=== PATIENT | male | born 1945 | race Caucasian/White ===

== ENCOUNTER 2017-10-07 16:15 | Emergency (ER) | payer MEDICARE ==
[2017-10-07] MEDS ORDERED: TETANUS/DIPHTHERIA TOXOID [ADULT] 0.5 ML VIAL IM ONE (16:31)
[2017-10-07] MEDS ORDERED: LIDOCAINE HCL 1% 20 ML VIAL ONE (16:31)
== END 2017-10-07 17:45 | disposition home or self-care (01) ==
LOC: EDH 16:15
DX: S61.210A Laceration without foreign body of right index finger without damage to nail, initial encounter (principal); J20.9 Acute bronchitis, unspecified; I10 Essential (primary) hypertension; I25.10 Atherosclerotic heart disease of native coronary artery without angina pectoris; Z90.49 Acquired absence of other specified parts of digestive tract; X58.XXXA Exposure to other specified factors, initial encounter; Y93.89 Activity, other specified; Y92.098 Other place in other non-institutional residence as the place of occurrence of the external cause; Y99.8 Other external cause status
CPT/HCPCS: 12042; 71046; 73140; 87804; 90471; 90714

== ENCOUNTER → 2018-05-26 | Outpatient (CLI) | payer MEDICARE ==
[~2018-05-26] MED LIST: IOHEXOL-350 50ML VIAL IV ONE
== END | disposition home or self-care (01) ==
LOC: RAH 08:53
PROVIDERS: ATTEND Internal Medicine Nephrology
DX: N28.1 Cyst of kidney, acquired (principal)
CPT/HCPCS: 74178; Q9967

== ENCOUNTER → 2023-07-11 | Outpatient (CLI) | payer MEDICARE ==
[2023-07-11 11:38] LABS: CREATININE 1.1 mg/dL (0.5-1.5)
== END | disposition home or self-care (01) ==
LOC: LAB 10:14
PROVIDERS: ATTEND Internal Medicine Cardiovascular Disease
DX: I71.20 Thoracic aortic aneurysm, without rupture, unspecified (principal)
CPT/HCPCS: 36415; 82565; 84520

== ENCOUNTER → 2023-07-15 | Outpatient (CLI) | payer MEDICARE ==
[~2023-07-15] MED LIST changes: +IOHEXOL 350 MG/ML 100ML INFUS..BTL IV ONE; -IOHEXOL-350 50ML VIAL IV ONE
== END | disposition home or self-care (01) ==
LOC: RAH 08:49
PROVIDERS: ATTEND Internal Medicine Cardiovascular Disease
DX: I71.20 Thoracic aortic aneurysm, without rupture, unspecified (principal); I51.7 Cardiomegaly; M47.819 Spondylosis without myelopathy or radiculopathy, site unspecified
CPT/HCPCS: 71275; Q9967

== ENCOUNTER → 2024-11-02 | Outpatient (CLI) | payer MEDICARE ==
[2024-11-02 11:36] LABS: CREATININE 1.2 mg/dL (0.5-1.3)
== END | disposition home or self-care (01) ==
LOC: LAB 09:47
PROVIDERS: ATTEND Internal Medicine Cardiovascular Disease
DX: I71.20 Thoracic aortic aneurysm, without rupture, unspecified (principal)
CPT/HCPCS: 36415; 82565; 84520

== ENCOUNTER → 2024-11-08 | Outpatient (CLI) | payer MEDICARE ==
--- NOTE | 2024-11-08 10:35 | HMCIMG ---
CT angiogram chest CLINICAL INDICATION: thoracic aneurysm COMPARISON: None. CT Dose Index (CTDI): 113.50 mGy Dose Length Product (DLP): 1408.10 total mGy PROTOCOL: Contrast: 100 cc of Isovue-370, injected IV, no complications Examination is done at 2.5 millimeter volumetric acquisition after contrast administration. Photography is done at 5 millimeter thick intervals for the thorax. FINDINGS: There is no evidence of pulmonary embolism. The airway is intact. The trachea and major bronchi are unremarkable. No pulmonary infiltrates or mass lesions are seen. Interstitial subpleural fibrotic changes of the lungs are seen bilaterally. No pleural effusions are identified. The exam of the tania and mediastinum is unremarkable. No evidence of hilar enlargement is seen. The aorta shows no aneurysmal dilatation or significant atheromatous calcification. There is no thoracic aortic dissection. No aorta rupture seen. No significant brachiocephalic vascular abnormalities are seen. The heart is unremarkable. It is not enlarged. No significant coronary arterial calcifications are seen. There is no pericardial effusion. The rib cage appears unremarkable. The soft tissues of the chest wall are unremarkable. The dorsal spine shows no significant abnormalities. Upper abdomen shows an anterior left renal exophytic simple cysts. IMPRESSION: No evidence of pulmonary embolism. Chronic pulmonary changes. Normal aorta. No dissection. No rupture. No aneurysm. This study was performed using dose reduction techniques to include automated exposure control and/or adjustment of the mA and/or kV according to patient size.
== END | disposition home or self-care (01) ==
LOC: RAH 09:03
PROVIDERS: ATTEND Internal Medicine Cardiovascular Disease
DX: J84.10 Pulmonary fibrosis, unspecified (principal); N28.1 Cyst of kidney, acquired; I71.20 Thoracic aortic aneurysm, without rupture, unspecified
CPT/HCPCS: 71275; Q9967; 36415; 82565; 84520

== ENCOUNTER 2025-06-08 05:50 | Observation (INO) | payer MEDICARE ==
[2025-06-06 13:01] VITALS: BP 131/77; PULSE 74; RESP 13; TEMP 98.1
[2025-06-06 13:05] LABS: INR 1.04 (0.85-1.15)
--- NOTE | 2025-06-06 13:20 | NUR ---
RE: IS INITIAL IS INITIAL TEACHING DONE BY RT JULY DURING PREOP.
[2025-06-08] VITALS (23 sets, daily range): BP systolic 87–153; BP diastolic 40–92; PULSE 70–100; RESP 16–19; TEMP 96.8–98.4; O2SAT 97–99
[~2025-06-08] VITALS: Ht 177.8 cm; Wt 100.8 kg
[~2025-06-08 05:50] MED LIST changes: +ATOR10 PO; +BRIM5DRO21 OU; +CARV25TA PO; +HYDR25TA PO; -IOHEXOL 350 MG/ML 100ML INFUS..BTL IV ONE; +LISI40TA15 PO; +PREG25CA19 PO; +TIMO5SOL10 OU
[2025-06-08] MEDS: LACTATED RINGERS 1000ML 1,000 ML IV ONE (06:11)
[2025-06-08] MEDS ORDERED: MIDAZOLAM HCL 1 MG/ML 2ML VIAL ONE (06:41)
[2025-06-08] MEDS ORDERED: LIDOCAINE HCL/EPINEPHRINE 30 ML VIAL IJ ONE (07:00)
[2025-06-08] MEDS ORDERED: GLYCOPYRROLATE 0.2 MG/ML 5 ML VIAL ONE (08:33)
[2025-06-08] MEDS ORDERED: TRANEXAMIC ACID 1000MG/10ML ONE (09:58)
[2025-06-08] MEDS: TRANEXAMIC ACID 1000MG/10ML IV ONE (09:59)
[2025-06-08] MEDS ORDERED: NEOSTIGMINE METHYLSULFATE 1MG/ML IV ONE (10:48)
[2025-06-08] MEDS ORDERED: CYCLOBENZAPRINE HCL 10 MG TABLET PO PRN (11:00)
[2025-06-08] MEDS ORDERED: FE FUMARATE/FA/MV, MIN COMB#15 1 TAB PO PRN (11:00)
[2025-06-08] MEDS ORDERED: PoTASSium chl 10% ELIXIR 20MEQ 20 MEQ/15 ML UDCUP PO PRN (11:00)
[2025-06-08] MEDS ORDERED: PROMETHAZINE HCL 25 MG/ML 1ML AMPULE IM PRN (11:30)
--- NOTE | 2025-06-08 11:50 | NUR ---
REPORT REPORT GIVEN FROM MAINOR FROM PACU 80 YR MALE STATUS POST RT TOTAL SHOULDER ARTHOPLASTY WITH DR. CURTIS PATIENT VITALS WERE BP 107/53, 16 RPM, 73 BPM, O2 96% ON 3L NASAL CANULA PATIENT WAS UNDER GENERAL ANETHESIA AND HAD A BLOCK PATIENT HAS HX OF BILATERAL CAROTID BIFURCATION AND NEEDS TO HAVE BP OVER 100 SYSTOLIC, GOT A DOSE OF EPHEDRINE IN PACU FIRST DOSE OF SCHEDULED TORADOL ALSO GIVEN IN PACU PATIENT IS ALERT AND ORIENTED X3 DERMABOND WITH PRINEO DRESSING IS IN PLACE AND RIGHT ARM IS IN A SLING DUE FOR NEXT DOSE OF ANCEF AT 1600 HOME MEDS ENTERED, ON CLEAR LIQUID AND ADVANCE TO REGULAR
--- NOTE | 2025-06-08 12:13 | HMCIMG ---
Intraoperative images obtained demonstrating reverse shoulder arthroplasty, right side. /[place]
--- NOTE | 2025-06-08 12:15 | NUR ---
UNIT ARRIVAL RECEIVED PATIENT FROM MAINOR PACU NURSE. PATIENT AWAKE, ALERT AND ORIENTED. PATIENT REPORTS NO PAIN AT THIS TIME. NO SIGNS OF DISTRESS NOTED. INCISION TO RIGHT SHOULDER CLEAN DRY AND INTACT. POST OP VITALS INITIATED. ASSESSED NEURO CHECKS. PT AND RT NOTIFIED. PHYSICIAN ORDERS IN PLACE. BED LOCKED IN LOWEST POSITION, CALL LIGHT WITHIN REACH. AT BEDSIDE.
--- NOTE | 2025-06-08 13:14 | HMCIMG ---
EXAM: CR right Shoulder, 1 View. CLINICAL HISTORY: RT reverse total shoulder arthroplasty COMPARISON: None provided. FINDINGS: BONES: No acute fracture or aggressive appearing osseous lesion. JOINTS: No dislocation. The joint spaces are normal. SOFT TISSUES: Postoperative single AP film demonstrates a right total shoulder arthroplasty, with postsurgical changes noted within the soft tissues. IMPRESSION: Postoperative single AP film demonstrates a right total shoulder arthroplasty, with postsurgical changes noted within the soft tissues. /[place]
[2025-06-08] MEDS: 0.9%NACL 1000ML 1,000 ML IV SCH (15:00)
[2025-06-08] MEDS: TIMOLOL OU SCH (21:00)
[2025-06-08] MEDS: BRIMONIDINE TARTRATE OU SCH (21:00)
[2025-06-08] MEDS: TIMOLOL MALEATE 0.5% 5 ML BOTTLE OU SCH (21:46)
[2025-06-08] MEDS ORDERED: HYDR-4060 PO (22:44)
[2025-06-08] MEDS ORDERED: DOCU-116 PO (22:44)
[2025-06-08] MEDS ORDERED: CYCL-309 PO (22:44)
[2025-06-09 03:58] LABS: NUCLEATED RED BLOOD CELLS 0.0 % (0.0-0.19); PLATELET COUNT (AUTO) 204.0 K/uL (130-400); RED BLOOD CELL COUNT(AUTO) 4.04 MIL/uL (4.50-6.20); RED CELL DISTRIBUTION WIDTH 12.4 % (11.0-15.5); WHITE BLOOD COUNT (AUTO) 12.8 K/uL (4.8-10.8)
[2025-06-09 04:10] LABS: CREATININE 1.1 mg/dL (0.5-1.3); GLOMERULAR FILTR. RATE CALC 67.0 mL/min (>90); GLUCOSE,RANDOM 138.0 mg/dL (70-105); SODIUM SERUM 133.0 mmol/L (136-145); UREA NITROGEN, BLOOD 19.0 mg/dL (7-18)
[2025-06-09 04:22] VITALS: BP 134/81; PULSE 94; RESP 18; TEMP 98.4
[2025-06-09] MEDS: PoTASSium chloRIDE 20MEQ ER 20 MEQ ERTAB PO PRN (06:08)
[2025-06-09 08:06] VITALS: BP 121/77; PULSE 93; RESP 16; TEMP 100
--- NOTE | 2025-06-09 08:06 | PN ---
Ortho postop day one. This morning patient is awake alert and oriented. Reporting adequate pain control. He is out of bed seated in a chair enjoying his breakfast. He did state that he had a GI upset last night but it is improved. Vital signs have remained stable he is afebrile. Laboratory results reviewed noted to have a drop in hemoglobin and hematocrit as expected after reverse shoulder arthroplasty. Patient is currently asymptomatic we will continue to observe and treat per protocol as necessary. The dressing to the anterior deltopectoral region is intact. Distal neurovascular exam intact. Able to give okay sign and full range of motion of the wrist actively. Reinforced incentive spirometry. Voiding on his own yet to pass gas. SCD sleeves present. Pending therapy this morning. Anticipated discharge goal is home health/OT. Assessment: Status post right reverse shoulder arthroplasty. Acute postoperative blood loss anemia. Plan: Continue with Dr. Thompson reverse shoulder arthroplasty and discharge planning. Acute postoperative blood loss anemia addressed with the protocol as necessary Vitals/Labs Vital Signs Date Time Temp Pulse Resp B/P (MAP) Pulse Ox O2 Delivery O2 Flow Rate FiO2 06/09/25 04:22 98.4 94 18 134/81 96 Room Air 21 06/08/25 20:00 0 Laboratory Tests 06/09/25 03:39 Medications Current Medications Cefazolin Sodium 2 gm STK-MED ONCE .ROUTE; Start 06/08/25 at 06:11; Stop 06/08/25 at 06:11; Status DC Lactated Ringer's 1,000 ml @ As Directed STK-MED ONCE IV; Start 06/08/25 at 06:11; Stop 06/08/25 at 06:11; Status DC Propofol 200 mg STK-MED ONCE IV; Start 06/08/25 at 06:40; Stop 06/08/25 at 06:40; Status DC Midazolam HCl 2 mg STK-MED ONCE .ROUTE; Start 06/08/25 at 06:41; Stop 06/08/25 at 06:40; Status DC Fentanyl Citrate 100 mcg STK-MED ONCE .ROUTE; Start 06/08/25 at 06:41; Stop 06/08/25 at 06:41; Status DC Rocuronium [place] 50 mg STK-MED ONCE .ROUTE; Start 06/08/25 at 06:58; Stop 06/08/25 at 06:58; Status DC Ropivacaine 150 mg STK-MED ONCE .ROUTE; Start 06/08/25 at 06:59; Stop 06/08/25 at 06:59; Status DC Lidocaine/ Epinephrine 30 ml STK-MED ONCE IJ; Start 06/08/25 at 07:00; Stop 06/08/25 at 07:00; Status DC Phenylephrine HCl 10 mg STK-MED ONCE IV; Start 06/08/25 at 07:01; Stop 06/08/25 at 07:01; Status DC Ondansetron HCl 4 mg STK-MED ONCE .ROUTE; Start 06/08/25 at 07:10; Stop 06/08/25 at 07:10; Status DC Acetaminophen 100 ml @ As Directed STK-MED ONCE .ROUTE; Start 06/08/25 at 07:15; Stop 06/08/25 at 07:15; Status DC Fentanyl Citrate 100 mcg STK-MED ONCE .ROUTE; Start 06/08/25 at 07:17; Stop 06/08/25 at 07:17; Status DC Rocuronium [place] 50 mg STK-MED ONCE .ROUTE; Start 06/08/25 at 08:22; Stop 06/08/25 at 08:22; Status DC Glycopyrrolate 1 mg STK-MED ONCE .ROUTE; Start 06/08/25 at 08:33; Stop 06/08/25 at 08:33; Status DC Ephedrine Sulfate 50 mg STK-MED ONCE .ROUTE; Start 06/08/25 at 08:40; Stop 06/08/25 at 08:40; Status DC Ondansetron HCl 4 mg STK-MED ONCE .ROUTE; Start 06/08/25 at 08:53; Stop 06/08/25 at 08:53; Status DC Metoclopramide HCl 10 mg STK-MED ONCE .ROUTE; Start 06/08/25 at 08:54; Stop 06/08/25 at 08:54; Status DC Tranexamic Acid 1,000 mg STK-MED ONCE .ROUTE; Start 06/08/25 at 09:58; Stop 06/08/25 at 09:58; Status DC Phenylephrine HCl 10 mg STK-MED ONCE IV; Start 06/08/25 at 10:39; Stop 06/08/25 at 10:39; Status DC Cefazolin Sodium 2 gm STK-MED ONCE IVPB Last administered on 06/08/25at 08:00; Start 06/08/25 at 08:00; Stop 06/08/25 at 10:48; Status DC Tranexamic Acid 1,000 mg STK-MED ONCE IV Last administered on 06/08/25at 09:59; Start 06/08/25 at 09:59; Stop 06/08/25 at 10:48; Status DC Neostigmine Methylsulfate 10 mg STK-MED ONCE IV; Start 06/08/25 at 10:48; Stop 06/08/25 at 10:49; Status DC Fentanyl Citrate 100 mcg STK-MED ONCE .ROUTE; Start 06/08/25 at 10:52; Stop 06/08/25 at 10:53; Status DC Sodium Chloride 1,000 ml @ 100 mls/hr Q10H IV Last administered on 06/08/25at 22:00; Start 06/08/25 at 11:00; Stop 06/09/25 at 10:59 Polyethylene Glycol 17 gm DAILY PO; Start 06/09/25 at 09:00; Stop 07/09/25 at 08:59 Bisacodyl 10 mg DAILY PRN RC; Start 06/11/25 at 11:00; Stop 07/11/25 at 10:59 Aspirin 325 mg BID PO; Start 06/09/25 at 09:00; Stop 07/09/25 at 08:59 Ketorolac Tromethamine 15 mg Q6H PRN IV; Start 06/08/25 at 11:00; Stop 06/13/25 at 10:59 Multivitamins/Iron 1 tab DAILY PRN PO; Start 06/08/25 at 11:00; Stop 07/08/25 at 10:59 Ondansetron HCl 4 mg Q6H PRN IVP Last administered on 06/08/25at 21:40; Start 06/08/25 at 11:00; Stop 07/08/25 at 10:59 Calcium Carbonate 500 mg Q12H PRN PO; Start 06/08/25 at 11:00; Stop 07/08/25 at 10:59 Cefazolin Sodium 2 gm Q8H IVPB Last administered on 06/09/25at 00:15; Start 06/08/25 at 16:00; Stop 06/09/25 at 00:01; Status DC Gabapentin 100 mg TID PO Last administered on 06/08/25at 21:26; Start 06/08/25 at 14:00; Stop 07/08/25 at 13:59 Cyclobenzaprine HCl 5 mg Q8H PRN PO; Start 06/08/25 at 11:00; Stop 07/08/25 at 10:59 Docusate Sodium 100 mg BID PO Last administered on 06/08/25at 21:25; Start 06/08/25 at 21:00; Stop 07/08/25 at 20:59 Ketorolac Tromethamine 15 mg Q8H IV Last administered on 06/09/25at 03:59; Start 06/08/25 at 11:00; Stop 06/09/25 at 03:01; Status DC Potassium Chloride 100 ml @ 100 mls/hr AD PRN IV; Start 06/08/25 at 11:00; Stop 07/08/25 at 10:59 Potassium Chloride 20 meq AD PRN PO; Start 06/08/25 at 11:00; Stop 07/08/25 at 10:59 Potassium Chloride 20 meq AD PRN PO Last administered on 06/09/25at 06:08; Start 06/08/25 at 11:00; Stop 07/08/25 at 10:59 Tramadol HCl 50 mg Q6H PRN PO Last administered on 06/09/25at 01:40; Start 06/08/25 at 11:00; Stop 06/13/25 at 10:59 Acetaminophen/ Hydrocodone Bitart Q4H PRN PO; Start 06/08/25 at 11:00; Stop 06/13/25 at 10:59 Atorvastatin Calcium 20 mg DAILY PO; Start 06/09/25 at 09:00; Stop 07/09/25 at 08:59 Carvedilol 25 mg BID PO Last administered on 06/08/25at 21:25; Start 06/08/25 at 21:00; Stop 07/08/25 at 20:59 Hydrochlorothiazide 25 mg DAILY PO; Start 06/09/25 at 09:00; Stop 07/09/25 at 08:59 Lisinopril 40 mg DAILY PO; Start 06/09/25 at 09:00; Stop 07/09/25 at 08:59 Pregabalin 25 mg BID PO; Start 06/08/25 at 21:00; Stop 06/08/25 at 11:13; Status DC Home Med (Brimonidine Tartrate/Timolol (Brimonidine-Kt... BID OU; Start 06/08/25 at 21:00; Stop 07/08/25 at 20:59 Timolol Maleate 1 DROP BID OU Last administered on 06/08/25at 21:46; Start 06/08/25 at 21:00; Stop 07/08/25 at 20:59 Ondansetron HCl 4 mg AD PRN IVP; Start 06/08/25 at 11:30; Stop 06/09/25 at 11:29 Metoclopramide HCl 10 mg AD PRN IVP; Start 06/08/25 at 11:30; Stop 06/09/25 at 11:29 Promethazine HCl 25 mg AD PRN IM; Start 06/08/25 at 11:30; Stop 06/09/25 at 11:29 Ketorolac Tromethamine 30 mg AD PRN IV; Start 06/08/25 at 11:30; Stop 06/08/25 at 11:16; Status DC Morphine Sulfate 2 mg AD PRN IVP; Start 06/08/25 at 11:30; Stop 06/09/25 at 11:29 Fentanyl Citrate 25 mcg Q5MIN PRN IVP; Start 06/08/25 at 11:30; Stop 06/09/25 at 11:29 Naloxone HCl 0.1 mg AD PRN IVP; Start 06/08/25 at 11:30; Stop 06/09/25 at 11:29 Ketorolac Tromethamine 15 mg STK-MED ONCE .ROUTE; Start 06/08/25 at 11:18; Stop 06/08/25 at 11:18; Status DC Ephedrine Sulfate 50 mg STK-MED ONCE .ROUTE Last administered on 06/08/25at 11:25; Start 06/08/25 at 11:21; Stop 06/08/25 at 11:22; Status DC 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
[2025-06-09] MEDS: ASPIRIN 325MG TAB PO SCH (08:12)
[2025-06-09] MEDS: CALCIUM CARB 500MG PO PRN (08:13)
[2025-06-09] MEDS: LISINOPRIL 40 MG TABLET PO SCH (08:13)
[2025-06-09] MEDS: HYDROcodone/APAP 5/325 1 TAB TABLET PO PRN (08:14)
[2025-06-09 08:22] VITALS: O2SAT 98
[2025-06-09 12:00] VITALS: BP 104/61; PULSE 78; RESP 16; TEMP 97.5
--- NOTE | 2025-06-09 15:00 | NUR ---
PATIENT DISCHARGE PATIENT DISCHARGED TO HOME WITH [facility]. REPORT GIVEN TO KUMAR SANDERSON. ALL QUESTIONS ANSWERED. DRESSING CLEAN DRY AND INTACT. NO REDNESS NO DRAINAGE NOTED TO SITE. PATIENT REPORTS PAIN OF 3/10 PAIN MEDICATION OFFERED PRIOR TO D/C PATIENT DECLINED. DISCHARGE EDUCATION PROVIDED. PRESCRIPTIONS FAXED TO PATIENT'S PREFERRED PHARMACY. PATIENT AWARE TO F/U WITH [facility] 06/28 AT 9:00 AM. ALL QUESTIONS ANSWERED. PATIENT TAKEN DOWN BY WHEELCHAIR TO PRIVATE VEHICLE. ALL BELONGINGS GIVEN TO PATIENT. Addendum: 06/09/25 at 1546 by CAPRICE LEE RN RN PERIPHERAL IV REMOVED CATHETER INTACT.
--- NOTE | 2025-06-13 14:55 | OP ---
Operative Note: DATE OF PROCEDURE: 06/08/25 SURGEON: GAYLE CURTIS MD [employer]IONAL SALES LEADER: SHEBA Owens ANESTHESIA: General and interscalene block ANESTHESIOLOGIST/INTERVENTION NURSE: LIBERTAD hahn PREOPERATIVE DIAGNOSIS: Right glenohumeral osteoarthritis POSTOPERATIVE DIAGNOSIS: Right glenohumeral osteoarthritis PROCEDURE: Right reverse total shoulder arthroplasty ESTIMATED BLOOD LOSS: 350 cc COMPLICATIONS: None DRAINS: None SPECIMENS: resected bone from the humeral head not sent to pathology IMPLANTS: [employer] size 36/12 FX V135 Humelock humeral stem, 135/145 degree +3 36 cup, 36 centered glenosphere, plus three lateralized base plate with central screw and three locking screws INDICATIONS: 80-year-old male with right shoulder pain and dysfunction secondary to right glenohumeral osteoarthritis. We discussed the options for anatomic versus reverse total shoulder arthroplasty as well as the risks and benefits and each scenario.. After discussion the risk, benefits, and alternatives, the patient voluntarily agreed to undergo the aforementioned procedure. DESCRIPTION OF PROCEDURE: Patient was properly identified in the preoperative holding area. Surgical site marking was verified and surgery consent reviewed. The patient was then taken to the operating room and placed in supine position on the OR table. After induction of general anesthesia, preoperative antibiotics were given, all bony prominences were well-padded as the patient was transitioned into beachchair positioning. The right upper extremity was then prepped and draped in usual sterile fashion. Surgical time out was done verifying correct surgery, side, site, and location to be performed. We then began the procedure by making approximately 12 cm long incision over the deltopectoral interval using a 10 blade. Hemostasis was performed using Bovie electrocautery. We then dissected through the subcutaneous tissues using the Metzenbaums to identify our deltopectoral interval. We then mobilized the cephalic vein laterally as we opened the interval. We then incised the clavipectoral fascia just lateral to the conjoined tendon and placed our retractor deep to this. We identified the long head of the biceps tendon and performed a tenotomy. We then began elevating the subscapularis off of its insertion on the humeral head using Bovie electrocautery. With external rotation we brought the humeral head into view and released the capsule at the inferior aspect of the head. We released a small portion of the pectoralis off of its insertion on the humerus to allow for better exposure. We then placed our retractors protecting soft tissue. At this point we began using the sounding instruments, hand reaming up to a size 12. We pinned the cutting guide off of the handle in 30 degrees of version and performed the humeral osteotomy. We then broached up to a size 12 x 36. We then placed our retractors around the glenoid to provide adequate exposure of the glenoid. The labrum and long head biceps tendon were resected with Bovie electrocautery. We then used to the guide to insert our central guidepin ensuring we were far enough inferior on the glenoid face. Over the central guidepin we reamed with the all-in-one reamer for the central peg and the faceplate. We then used the retail gift card merchandising to clean up the remaining soft tissue and bone. We then thoroughly irrigated out the glenoid bone and impacted into position the glenoid baseplate. We elected to place a central screw through the base plate. We then placed 3 locking screw in the baseplate. We noted using a freer elevator that the baseplate was appropriately seated. We elected to use a 36 centered glenosphere. Glenosphere was then seated in standard fashion with the setscrew tightened. We then removed our retractors and dislocated the humerus once more. We remove the protective cap from the cut end of the humerus. We then elected to trial with a size +3 135/145 degree polyethylene. With this in place, we reduced the humerus and noted good stable range of motion. We then dislocated the humerus and remove the trial components. We thoroughly irrigated out the bone. We seated the final stem implant and trialed once more. The size +3 polyethylene was still appropriate so we opened the final polyethylene and implanted this in standard fashion. We then reduced the humerus once more and ensured appropriate range of motion and stability. We checked the position of the components under fluoroscopy and found him to be appropriate. We thoroughly irrigated out the wound. We then began loosely repairing the deltopectoral interval using #2 Ethibond. Subcutaneous tissue was approximated using 2-0 Vicryl. The skin was closed using a running subcuticular 3-0 Monocryl with Dermabond applied. An Optifoam dressing was applied once the Dermabond dried. The patient was then placed into a sling, awakened from anesthesia, and taken recovery room in stable condition. GAYLE CURTIS MD Jun 13, 2025 14:55
--- NOTE | 2025-06-24 11:30 | HMCIMG ---
SHOULDER LTD 1VW RT REASON: S/P SHOULDER SURGERY TECHNIQUE: 1 views were obtained. FINDINGS: There is right shoulder reverse arthroplasty which appears to be anatomical position. There is no evidence of fracture or dislocation. There is no joint effusion. The soft tissues appear unremarkable. The glenohumeral joint appears to be intact. IMPRESSION: Status post right shoulder reverse arthroplasty which appears to be anatomical position.
== END 2025-06-09 15:00 | disposition home or self-care (01) ==
LOC: DAH 05:50 → DAHIP 10:51 → EDSTATUS 12:00 → 4AH 12:15
PROVIDERS: ADMIT Student in an Organized Health Care Education/Training Program; ATTEND Student in an Organized Health Care Education/Training Program
DX: M19.011 Primary osteoarthritis, right shoulder (principal); M25.511 Pain in right shoulder; D62 Acute posthemorrhagic anemia; I10 Essential (primary) hypertension; Z79.899 Other long term (current) drug therapy; Z98.890 Other specified postprocedural states
CPT/HCPCS: 85610; 85730; 84134; 86140; 36415 ×2; 87641; 23472; 96365; 96375; 64415; 73020; 73030; 97161; 97116 ×3; 97530 ×3; 96376; 96366; 80048; 85027; G0378 ×28; A4223 ×2; A4600; C1713 ×5; C1776 ×4; A4663; J7030; J7120; J3010 ×3; J3490 ×7; J2704; J2405; J2710; J2765; J2795; J1885 ×4; J2371 ×2; J0690 ×4; A4649; A6254; A5120; A4215; A4213; A4222; A4221; A4216; J2250